=== PATIENT | male | born 1965 | race Caucasian/White ===

== ENCOUNTER → 2020-08-24 | Outpatient (CLI) | payer MEDICARE, MEDICAID ==
[~2020-08-24] MED LIST: GADOBUTROL 7.5 MMOL/7.5 ML (GADAVIST) VIAL IV ONE
--- NOTE | 2020-08-24 11:14 | Diagnostic Imaging Report ---
PROCEDURE: MR imaging of the brain with and without contrast. TECHNIQUE: Multiplanar, multisequence MR imaging of the brain was performed with and without contrast. INDICATION: Hallucinations. No prior studies are available for comparison. FINDINGS: The ventricles and sulci are within normal limits. There are periventricular and subcortical white matter signal abnormalities noted consistent with chronic microvascular ischemia. No diffusion restriction is identified to suggest acute ischemia. Normal expected flow-voids within the carotid siphons are seen. No acute intraaxial or extra-axial hemorrhage is detected. No abnormal enhancement following contrast administration is identified. Corpus callosum is unremarkable. The sella and parasellar structures are unremarkable. There appears to be deformity to the left globe. There is also small right globe with questionable retinal detachment. IMPRESSION: 1. Changes of chronic microvascular ischemia. No acute intracranial process is detected. Dictated by: Dictated on workstation # [id number]
== END ==
LOC: RAD 09:29
PROVIDERS: ATTEND Nurse Practitioner Family
DX: I67.82 Cerebral ischemia (principal); F20.0 Paranoid schizophrenia
CPT/HCPCS: 70553